=== PATIENT | male | born 1945 | race Hispanic/Latino ===

== ENCOUNTER 2023-03-22 23:13 | Emergency (ER) | payer MEDICARE, OTHER ==
[~2023-03-22] VITALS: Ht 170.2 cm; Wt 112.9 kg
[2023-03-22 23:50] LABS: BASOPHILS % (AUTO) 0.7 % (0.0-5.0); EOSINOPHILS % (AUTO) 2.4 % (0.0-8.0); HEMATOCRIT 49.4 % (42-54); LYMPHOCYTES % (AUTO) 25.2 % (21.0-51.0); MEAN CORPUSCULAR HEMOGLOBIN 32.2 pg (27.0-33.0); MEAN CORPUSCULAR HGB CONC 33.2 g/dL (32.0-36.0); MEAN CORPUSCULAR VOLUME 96.9 fL (79-99); MONOCYTES % (AUTO) 7.8 % (3.0-13.0); NEUTROPHILS % (AUTO) 63.4 % (40.0-77.0); PLATELET COUNT (AUTO) 196 K/uL (130-400); RED CELL DISTRIBUTION WIDTH 13.4 % (11.0-15.5); WHITE BLOOD COUNT (AUTO) 9.1 K/uL (4.8-10.8)
[2023-03-22 23:51] LABS: APPEARANCE,URINE CLEAR (CLEAR); BILIRUBIN,URINE NEGATIVE (NEGATIVE); COLOR,URINE LIGHT-YELLOW (YELLOW); GLUCOSE, URINE (UA) NEGATIVE (NEGATIVE); KETONES,URINE NEGATIVE (NEGATIVE); LEUKOCYTE ESTERASE ,URINE NEGATIVE Leu/uL (NEGATIVE); NITRATE,URINE NEGATIVE (NEGATIVE); OCCULT BLOOD,URINE NEGATIVE (NEGATIVE); PH,URINE 5.5 (5.0-8.0); PROTEIN,URINE 30 mg/dL (NEGATIVE); UROBILINOGEN,URINE 0.2 mg/dL (0.2-1.0)
[2023-03-22 23:58] LABS: POTASSIUM 4.9 mmol/L (3.5-5.1)
[2023-03-23 00:03] LABS: ALBUMIN 3.8 g/dL (3.5-5.0); TOTAL PROTEIN, SERUM 7.7 g/dL (6.0-8.3)
[2023-03-23] MEDS ORDERED: IOHEXOL-350 75 ML VIAL IV ONE (00:22)
[2023-03-23 01:41] VITALS: BP 156/84
[2023-03-23] MEDS ORDERED: LIDOP TD (02:00)
[2023-03-23] MEDS ORDERED: CYCL-309 PO (02:01)
== END 2023-03-23 02:35 | disposition home or self-care (01) ==
LOC: EDH 23:13
DX: R10.12 Left upper quadrant pain (principal); M19.90 Unspecified osteoarthritis, unspecified site; I10 Essential (primary) hypertension; Z79.899 Other long term (current) drug therapy
CPT/HCPCS: 36415; 71100; 74176; 80053; 81003; 85025; Q9967

== ENCOUNTER 2024-08-22 19:46 | Emergency (ER) | payer OTHER ==
[~2024-08-22] VITALS: Ht 170.2 cm; Wt 113.4 kg
[~2024-08-22 19:46] MED LIST: CYCL-309 PO; LIDOP TD
[2024-08-22 20:33] LABS: BASOPHILS # (AUTO) 0.07 K/uL (0.00-0.20); BASOPHILS % (AUTO) 0.8 % (0.0-5.0); EOSINOPHILS # (AUTO) 0.38 K/uL (0.00-0.70); EOSINOPHILS % (AUTO) 4.3 % (0.0-8.0); HEMATOCRIT 42.3 % (42-54); IMMATURE GRANULOCYTE ABSOLUTE 0.03 K/uL (0-1); LYMPHOCYTES # (AUTO) 2.2 K/uL (1.0-4.8); MONOCYTES # (AUTO) 0.8 K/uL (0.1-1.0); MONOCYTES % (AUTO) 8.7 % (3.0-13.0); NEUTROPHILS # (AUTO) 5.3 K/uL (1.8-7.7); NEUTROPHILS % (AUTO) 60.9 % (40.0-77.0); PLATELET COUNT (AUTO) 221 K/uL (130-400); RED CELL DISTRIBUTION WIDTH 14.3 % (11.0-15.5); WHITE BLOOD COUNT (AUTO) 8.8 K/uL (4.8-10.8)
[2024-08-22 20:49] LABS: CREATININE 2.3 mg/dL (0.5-1.3); POTASSIUM 4.1 mmol/L (3.5-5.1)
[2024-08-22] MEDS ORDERED: PRED20TA3 PO (22:12)
[2024-08-22] MEDS ORDERED: TRAM50TA4 PO (22:12)
[2024-08-22] MEDS: Solu-medROL 125MG VIAL IVP ONE (22:25)
[2024-08-22] MEDS: traMADol HCL 50 MG TABLET PO ONE (22:26)
[2024-08-22 22:31] VITALS: BP 138/66; PULSE 73; RESP 18; TEMP 98.1; O2SAT 97
== END 2024-08-22 22:56 | disposition home or self-care (01) ==
LOC: EDH 19:46
DX: M25.552 Pain in left hip (principal); E66.9 Obesity, unspecified; I10 Essential (primary) hypertension; M19.90 Unspecified osteoarthritis, unspecified site; Z79.899 Other long term (current) drug therapy; Z98.890 Other specified postprocedural states; W01.0XXA Fall on same level from slipping, tripping and stumbling without subsequent striking against object, initial encounter; Y93.01 Activity, walking, marching and hiking; Y92.89 Other specified places as the place of occurrence of the external cause; Y99.8 Other external cause status
CPT/HCPCS: 99284; 96374; 80048; 85025; 36415; 73502; J2919

== ENCOUNTER 2024-08-23 18:34 | Emergency (ER) | payer OTHER ==
[~2024-08-23] VITALS: Ht 170.2 cm; Wt 117.9 kg
[~2024-08-23 18:34] MED LIST changes: +PRED20TA3 PO; +TRAM50TA4 PO
[2024-08-23 22:10] VITALS: BP 132/66; PULSE 66; RESP 20; TEMP 98.6; O2SAT 98
== END 2024-08-23 22:13 | disposition home or self-care (01) ==
LOC: EDH 18:34
DX: M25.552 Pain in left hip (principal); R53.1 Weakness; M19.90 Unspecified osteoarthritis, unspecified site; I10 Essential (primary) hypertension; Z79.899 Other long term (current) drug therapy; W18.39XA Other fall on same level, initial encounter; Y93.89 Activity, other specified; Y92.89 Other specified places as the place of occurrence of the external cause; Y99.8 Other external cause status
CPT/HCPCS: 73552; 73700